=== PATIENT | male | born 1980 | race African-American/Black ===

== ENCOUNTER 2016-11-03 06:05 | Emergency (ER) | payer BC ==
[2016-11-03 07:00] LABS: ABSOLUTE EOSINOPHILS # (AUTO) 0.1 10^3/uL (0.0-0.6); ABSOLUTE LYMPHOCYTES (AUTO) 1.4 10^3/uL (0.5-4.7); ABSOLUTE MONOCYTES (AUTO) 0.4 10^3/uL (0.1-1.4); BASOPHILS % (AUTO) 0.9 % (0-2); EOSINOPHILS % (AUTO) 2.1 % (0-6); HEMATOCRIT 41.2 % (37.9-51.0); HEMOGLOBIN 14.4 g/dL (13.5-17.0); LYMPHOCYTES % (AUTO) 35.8 % (13-45); MEAN CORPUSCULAR HEMOGLOBIN 30.9 pg (27.0-33.4); MEAN CORPUSCULAR HGB CONC 34.9 g/dL (32.0-36.0); MEAN CORPUSCULAR VOLUME 88 fl (80-97); MONOCYTES % (AUTO) 10.5 % (3-13); RED BLOOD COUNT 4.66 10^6/uL (4.35-5.55); RED CELL DISTRIBUTION WIDTH 13.1 % (11.5-14.0); SEGMENTED NEUTROPHILS % (AUTO) 50.7 % (42-78); WHITE BLOOD COUNT 3.9 10^3/uL (4.0-10.5)
[2016-11-03 07:13] LABS: ALANINE AMINOTRANSFERASE 45 U/L (21-72); ALBUMIN 4.5 g/dL (3.5-5.0); ALKALINE PHOSPHATASE 69 U/L (38-126); ANION GAP 11 (5-19); ASPARTATE AMINO TRANSFERASE 70 U/L (17-59); BILIRUBIN,DIRECT 0.2 mg/dL (0.0-0.4); BILIRUBIN,TOTAL 1.7 mg/dL (0.2-1.3); BLOOD UREA NITROGEN 17 mg/dL (7-20); CALCIUM 9.5 mg/dL (8.4-10.2); CARBON DIOXIDE 29 mmol/L (22-30); CHLORIDE 98 mmol/L (98-107); CREATINE KINASE 975 U/L (55-170); CREATININE RESULT 1.05 mg/dL (0.52-1.25); GLUCOSE 99 mg/dL (75-110); POTASSIUM 3.8 mmol/L (3.6-5.0); SODIUM 138.4 mmol/L (137-145); TOTAL PROTEIN 7.6 g/dL (6.3-8.2)
[2016-11-03 07:26] LABS: CREATINE KINASE MB 1.55 ng/mL (<4.55); TROPONIN I < 0.012 ng/mL
[2016-11-03] MEDS ORDERED: LORAZEPAM INJ 2 MG/1 ML VIAL IV ONE (07:28)
[2016-11-03] MEDS ORDERED: NORMAL SALINE 1000 ML 1,000 ML IV ONE (07:28)
--- NOTE | 2016-11-03 07:32 | ER Document Report ---
ED General - General Chief Complaint: Chest Pain Stated Complaint: CHEST DISCOMFORT Mode of Arrival: Medic Information source: Patient, H Records Notes: 36-year-old male presents with complaints of chest pressure sensation. Patient notes that he has had these symptoms on and off for over a year, today it worsened associated with shortness of breath. Patient notes it feels like anxiety and panic attack. Denies any fevers or chills nausea vomiting or diarrhea TRAVEL OUTSIDE OF THE [place] IN LAST 30 DAYS: No - HPI Onset: Just prior to arrival Onset/Duration: Sudden Quality of pain: Pressure Severity: Mild Pain Level: 1 Associated symptoms: Chest pain, Shortness of breath Exacerbated by: Walking Relieved by: Denies Similar symptoms previously: Yes Recently seen / treated by doctor: Yes - Related Data Allergies/Adverse Reactions: No Known Allergies Allergy (Verified 04/30/13 09:59) Past Medical History - Social History Smoking Status: Never Smoker Cigarette use (# per day): No Chew tobacco use (# tins/day): No Smoking Education Provided: No Frequency of alcohol use: None Drug Abuse: None Family History: Reviewed & Not Pertinent - Past Medical History Cardiac Medical History: Reports: Hx Hypertension - untreated Renal/ Medical History: Denies: Hx Peritoneal Dialysis - Immunizations Hx Diphtheria, Pertussis, Tetanus Vaccination: Yes Review of Systems - Review of Systems Notes: REVIEW OF SYSTEMS: CONSTITUTIONAL : Denies fever, chills, or sweats. Denies recent illness. EENT: Denies eye, ear, throat, or mouth pain or symptoms. Denies nasal or sinus congestion or discharge. Denies throat, tongue, or mouth swelling or difficulty swallowing. CARDIOVASCULAR: Admits to chest pain RESPIRATORY: Admits shortness of breath GASTROINTESTINAL: Denies abdominal pain or distention. Denies nausea, vomiting , or diarrhea. Denies blood in vomitus, stools, or per rectum. Denies black, tarry stools. Denies constipation. GENITOURINARY: Denies difficulty urinating, painful urination, burning, frequency, blood in urine, or discharge. MUSCULOSKELETAL: Denies back or neck pain or stiffness. Denies joint pain or swelling. SKIN: Denies rash, lesions or sores. HEMATOLOGIC : Denies easy bruising or bleeding. LYMPHATIC: Denies swollen, enlarged glands. NEUROLOGICAL: Denies confusion or altered mental status. Denies passing out or loss of consciousness. Denies dizziness or lightheadedness. Denies headache. Denies weakness or paralysis or loss of use of either side. Denies problems with gait or speech. Denies sensory loss, numbness, or tingling. Denies seizures. PSYCHIATRIC: Admits to anxiety ALL OTHER SYSTEMS REVIEWED AND NEGATIVE. Dictation was performed using [employer] voice recognition software PHYSICAL EXAMINATION: GENERAL: Well-appearing, well-nourished and in no acute distress. HEAD: Atraumatic, normocephalic. EYES: Pupils equal round and reactive to light, extraocular movements intact, sclera anicteric, conjunctiva are normal. ENT: Nares patent, oropharynx clear without exudates. Moist mucous membranes. NECK: Normal range of motion, supple without lymphadenopathy LUNGS: Breath sounds clear to auscultation bilaterally and equal. No wheezes rales or rhonchi. HEART: Regular rate and rhythm without murmurs ABDOMEN: Soft, nontender, nondistended abdomen. No guarding, no rebound. No masses appreciated. Musculoskeletal: Normal range of motion, no pitting or edema. No cyanosis. NEUROLOGICAL: Cranial nerves grossly intact. Normal speech, normal gait. Normal sensory, motor exams PSYCH: Normal mood, normal affect. SKIN: Warm, Dry, normal turgor, no rashes or lesions noted. Physical Exam - Vital signs Vitals: Temp Pulse Resp BP Pulse Ox 98.4 F 59 L 18 132/89 H 95 11/03/16 06:13 11/03/16 06:13 11/03/16 06:13 11/03/16 06:13 11/03/16 06:13 Course - Re-evaluation Re-evalutation: 11/03/16 07:31 Patient has significant T-wave inversions, however this is exactly the same in appearance as his previous visit last year, when he had a normal ACS rule out. 11/03/16 08:33 Dr. perez has been consulted to evaluate patient 11/03/16 11:19 Echocardiagram noted mild dysfunction, otherwise no effusion. second set of enzymes negative given that there are no new ekg changes , pt noted releif with anoxety medication i will dc home with the understanding that he must follow up with Dr Perez for further care today and he will set patient up for a stress test for Sunday After performing a Medical Screening Examination, I estimate there is LOW risk for RUPTURED ESOPHAGUS, PNEUMOTHORAX, PULMONARY EMBOLISM, ACUTE CORONARY SYNDROME, OR THORACIC AORTIC DISSECTION, thus I consider the discharge disposition reasonable. I have reevaluated this patient multiple times and no significant life threatening changes are noted. The patient and I have discussed the diagnosis and risks, and we agree with discharging home with close follow-up. We also discussed returning to the Emergency Department immediately if new or worsening symptoms occur. We have discussed the symptoms which are most concerning (e.g., bloody sputum, worsening pain or shortness of breath) that necessitate immediate return. - Vital Signs Vital signs: Temp Pulse Resp BP Pulse Ox 98.4 F 59 L 18 126/87 H 99 11/03/16 06:13 11/03/16 06:13 11/03/16 07:01 11/03/16 09:14 11/03/16 09:14 - Laboratory Result Diagrams: 11/03/16 06:49 11/03/16 06:49 Laboratory results interpreted by me: 11/03/16 11/03/16 11/03/16 06:49 06:49 10:27 WBC 3.9 L Total Bilirubin 1.7 H AST 70 H Creatine Kinase 975 H 831 H - Diagnostic Test Radiology reviewed: Image reviewed, Reports reviewed - EKG Interpretation by Me EKG shows normal: Sinus rhythm, [place], Intervals, QRS Complexes, ST-T Waves When compared to previous EKG there are: No significant change - Significant ST inversion Discharge - Discharge Clinical Impression: Anxiety, Electrocardiogram showing no change from prior tracing Chest pain Qualifiers: Chest pain type: unspecified Qualified Code(s): R07.9 - Chest pain, unspecified Condition: Stable Disposition: HOME, SELF-CARE Instructions: Chest Pain of Unclear Cause ([facility]) Prescriptions: Lorazepam [Ativan 0.5 mg Tablet] 0.5 mg PO Q4 PRN #20 tab PRN Reason: Referrals: POLINA SAAVEDRA MD [Primary Care Provider] - Follow up as needed ELISA PEREZ MD [ACTIVE STAFF] - 11/03/16
--- NOTE | 2016-11-03 11:11 | XCELERA REPORT ---
[address] [address] Transthoracic Echocardiogram Report Name: GINGER ARRINGTON Age: 36 yrs Gender: Male : 1980 Patient Status: Emergency Patient Location: ER Study Date: 11/03/2016 09:34 AM Height: 66 in Weight: 175 lb BSA: 1.9 m2 Procedure: A complete two-dimensional transthoracic echocardiogram was performed (2D, M-mode, spectral and color flow Doppler). The study was technically adequate with some images being suboptimal in quality. Reason For Study: chest pain Ordering Physician: YAMILE OLSON Performed By: Mary Tejada Interpretation Summary The left ventricular ejection fraction is normal. Doppler measurements suggest impaired left ventricular relaxation, which is associated with grade I/IV or mild diastolic dysfunction There is mild concentric left ventricular hypertrophy. The left ventricle is grossly normal size. The left ventricular wall motion is normal. The right ventricular systolic function is normal. The right atrium is normal. The left atrial size is normal. There is a trace amount of mitral regurgitation There is no mitral valve stenosis. No aortic regurgitation is present. There is no aortic valve stenosis There is a trace or physiologic amount of tricuspid regurgitation Tricuspid regurgitation jet envelope not well defined to measure RV systolic pressure accurately. The aortic root is not well visualized. The inferior vena cava appeared normal There is no pericardial effusion. MMode/2D Measurements \T\ Calculations RVDd: 3.5 cm LVIDd: 4.6 cm FS: 40.2 % Ao root diam: 2.5 cm IVSd: 1.0 cm LVIDs: 2.7 cm EDV(Teich): 95.2 ml LVPWd: 1.0 cm ESV(Teich): 27.6 ml Ao root area: 4.8 cm2 EF(Teich): 71.0 % LA dimension: 2.9 cm Doppler Measurements \T\ Calculations MV E max srinivas: MV P1/2t max srinivas: Ao V2 max: LV V1 max P.9 cm/sec 83.4 cm/sec 158.2 cm/sec 7.9 mmHg MV A max srinivas: MV P1/2t: 87.7 msec Ao max PG: LV V1 max: 48.9 cm/sec 10.0 mmHg 140.7 cm/sec MV E/A: 1.7 MVA(P1/2t): 2.5 cm2 MV dec slope: 278.7 cm/sec2 PA V2 max: PI end-d srinivas: 96.3 cm/sec 123.5 cm/sec PA max P.7 mmHg Left Ventricle The left ventricle is grossly normal size. There is mild concentric left ventricular hypertrophy. The left ventricular ejection fraction is normal. Doppler measurements suggest impaired left ventricular relaxation, which is associated with grade I/IV or mild diastolic dysfunction. The left ventricular wall motion is normal. Right Ventricle The right ventricle is grossly normal size. There is normal right ventricular wall thickness. The right ventricular systolic function is normal. Atria The right atrium is normal. The left atrial size is normal. Interarterial septum not well visualized and not well dopplered. Cannot comment on ASD/PFO presence. Mitral Valve The mitral valve is grossly normal. There is no mitral valve stenosis. There is a trace amount of mitral regurgitation. Aortic Valve The aortic valve is grossly normal. There is no aortic valve stenosis. No aortic regurgitation is present. Tricuspid Valve The tricuspid valve is not well visualized, but is grossly normal. There is no tricuspid stenosis. There is a trace or physiologic amount of tricuspid regurgitation. Tricuspid regurgitation jet envelope not well defined to measure RV systolic pressure accurately. Pulmonic Valve The pulmonic valve is not well seen, but is grossly normal. Great Vessels The aortic root is not well visualized. The inferior vena cava appeared normal. Effusions There is no pericardial effusion. : YAMILE OLSON Shyamal
[2016-11-03 11:13] LABS: CREATINE KINASE MB 1.32 ng/mL (<4.55)
[2016-11-03 11:14] LABS: TROPONIN I < 0.012 ng/mL
[2016-11-03 11:52] VITALS: BP 126/83
--- NOTE | 2016-11-03 21:53 | EKG REPORT ---
SEVERITY:- ABNORMAL ECG - SINUS RHYTHM ATRIAL PREMATURE COMPLEX ABNORMAL T, PROBABLE ISCHEMIA, ANT-LAT LEADS : Confirmed by: Chari Tobias MD 03-Nov-2016 21:51:37
== END 2016-11-03 12:07 | disposition home or self-care (01) ==
LOC: ER 06:05
DX: F41.9 Anxiety disorder, unspecified (principal); R07.9 Chest pain, unspecified; R06.02 Shortness of breath; I10 Essential (primary) hypertension
CPT/HCPCS: 93005; 99285; 96361; 96374; 36415; 82553; 82550; 85025; 80053; 84484; 93306; 71020; 93010; J2060; J7030

== ENCOUNTER 2018-05-02 09:18 | Emergency (ER) | payer BC ==
[2018-05-02 09:28] VITALS: BP 113/64
[2018-05-02] MEDS ORDERED: BUSPIRONE HCL 10 MG TABLET PO ONE (09:41)
[2018-05-02] MEDS ORDERED: IPRATROPIUM/ALBUTEROL 0.5-2.5 MG/3 ML AMPUL NEB ONE (09:41)
--- NOTE | 2018-05-02 09:47 | ER Document Report ---
ED General - General Chief Complaint: Numbness Stated Complaint: DIZZINESS,SHORTNESS OF BREATH Time Seen by Provider: 05/02/18 09:40 Notes: Chief complaint: Difficulty breathing History of complain:( obtained from----patient) 37 years old male with a history of anxiety, hypertension, had a chemical stress test done last fall with normal finding, evaluated for sleep apnea last year, presents today with shortness of breath on and off for several months, feeling lightheaded and dizzy since yesterday as well as left arm numbness over the inner border of the forearm from the elbow to the fourth and fifth fingers. Denies any ringing sensation in the, denies any headache, denies any focal weakness numbness tingling sensation, denies any chest pain or palpitation. Denies any fever chills or other constitutional symptoms. He has nasal polyps, when he breathes through the mouth he was able to breathe better. No fever chills or other constitutional symptoms Onset: As above Duration: Gradual long-standing Severity: Mild Quality: As mentioned above Context: Possible anxiety Exacerbating factor and relieving factors: None REVIEW OF SYSTEMS: CONSTITUTIONAL : Denies fever, chills, or sweats. Denies recent illness. EENT: Denies eye, ear, throat, or mouth pain or symptoms. Denies nasal or sinus congestion or discharge. Denies throat, tongue, or mouth swelling or difficulty swallowing. CARDIOVASCULAR: Denies chest pain. Denies palpitations or racing or irregular heart beat. Denies ankle edema. RESPIRATORY: Denies cough, cold, or chest congestion. Denies shortness of breath, difficulty breathing, or wheezing. GASTROINTESTINAL: Denies distention. Denies nausea, vomiting, or diarrhea. Denies blood in vomitus, stools, or per rectum. Denies black, tarry stools. Denies constipation. GENITOURINARY: Denies difficulty urinating, painful urination, burning, frequency, blood in urine, or discharge. FEMALE GENITOURINARY: Denies vaginal bleeding, heavy or abnormal periods, irregular periods. Denies vaginal discharge or odor. MUSCULOSKELETAL: Denies back or neck pain or stiffness. Denies joint pain or swelling. SKIN: Denies rash, lesions or sores. HEMATOLOGIC : Denies easy bruising or bleeding. LYMPHATIC: Denies swollen, enlarged glands. NEUROLOGICAL: Denies confusion or altered mental status. Denies passing out or loss of consciousness. Denies dizziness or lightheadedness. Denies headache. Denies weakness or paralysis or loss of use of either side. Denies problems with gait or speech. Denies sensory loss, numbness, or tingling. Denies seizures. PSYCHIATRIC: Denies anxiety or stress. Denies depression, suicidal ideation, or homicidal ideation. ALL OTHER SYSTEMS REVIEWED AND NEGATIVE. PHYSICAL EXAMINATION: GENERAL: Well-appearing, well-nourished and in no acute distress. HEAD: Atraumatic, normocephalic. EYES: Pupils equal round and reactive to light, extraocular movements intact, conjunctiva are normal. ENT: Nares patent, oropharynx clear without exudates. Moist mucous membranes. NECK: Normal range of motion, supple without lymphadenopathy LUNGS: Breath sounds clear to auscultation bilaterally and equal. No wheezes rales or rhonchi. HEART: Regular rate and rhythm without murmurs ABDOMEN: Soft, nontender, nondistended abdomen. No guarding, no rebound. No masses appreciated. Examination of genitals-deferred Musculoskeletal: Normal range of motion, no pitting or edema. No cyanosis. NEUROLOGICAL: Cranial nerves grossly intact. Normal speech, normal gait. Normal sensory, motor exams PSYCH: Normal mood, normal affect. SKIN: Warm, Dry, normal turgor, no rashes or lesions noted. Dictation was performed using [employer] voice recognition software TRAVEL OUTSIDE OF THE [place] IN LAST 30 DAYS: No - HPI Notes: Dictated - Related Data Allergies/Adverse Reactions: No Known Allergies Allergy (Verified 05/02/18 09:20) Past Medical History - Social History Smoking Status: Former Smoker Chew tobacco use (# tins/day): No Frequency of alcohol use: Occasional Drug Abuse: None Lives with: Family Family History: Reviewed & Not Pertinent Patient has suicidal ideation: No Patient has homicidal ideation: No - Past Medical History Cardiac Medical History: Reports: Hx Hypertension - untreated Renal/ Medical History: Denies: Hx Peritoneal Dialysis - Immunizations Hx Diphtheria, Pertussis, Tetanus Vaccination: Yes Review of Systems - Review of Systems Notes: Dictated Physical Exam - Vital signs Vitals: Temp Pulse Resp BP Pulse Ox 98.4 F 60 15 113/64 99 05/02/18 09:26 05/02/18 09:26 05/02/18 09:26 05/02/18 09:26 05/02/18 09:26 - Notes Notes: Dictated Course - Vital Signs Vital signs: Temp Pulse Resp BP Pulse Ox 98.4 F 60 15 113/64 99 05/02/18 09:26 05/02/18 09:26 05/02/18 09:26 05/02/18 09:26 05/02/18 09:26 - EKG Interpretation by Mi EKG shows normal: Sinus rhythm - Electrocardiogram shows sinus rhythm at the rate of 56 bpm T wave inversions in V3 V4 V5 V6 conduction delay in inferior leads. This electrocardiogram was compared with the electrocardiogram that was done in November 03, 2016. The current EKG is much improvement. He had subsequent to the previous electrocardiogram had a chemical stress test which was reported by the bundle shaker as normal. Discharge - Discharge Clinical Impression: Anxiety, Abnormal EKG Hyperactive airway disease Qualifiers: Asthma severity: mild Asthma persistence: intermittent Asthma complication type : with acute exacerbation Qualified Code(s): J45.21 - Mild intermittent asthma with (acute) exacerbation Condition: Fair Disposition: HOME, SELF-CARE Instructions: Reactive Airway Disease ([facility]), Anxiety ([facility]), Electrogram Abnormality ([facility]) Prescriptions: Albuterol Sulfate [Proair HFA] 1 - 2 puff IH Q4 PRN #1 inhaler PRN Reason: Buspirone HCl [Buspar 5 mg Tablet] 1 tab PO BID #60 tab Referrals: POLINA SAAVEDRA MD [Primary Care Provider] - Follow up as needed
--- NOTE | 2018-05-02 12:51 | EKG REPORT ---
SEVERITY:- ABNORMAL ECG - SINUS RHYTHM ABNORMAL T, CONSIDER ISCHEMIA, DIFFUSE LEADS ESSENTAILLY UNCHANGED FROM 11/03/16 : Confirmed by: Kieran Simon MD 02-May-2018 12:50:11
== END 2018-05-02 10:40 | disposition home or self-care (01) ==
LOC: ER 09:18
DX: J45.21 Mild intermittent asthma with (acute) exacerbation (principal); R20.0 Anesthesia of skin; F41.9 Anxiety disorder, unspecified; R94.31 Abnormal electrocardiogram [ECG] [EKG]; R42 Dizziness and giddiness; R06.02 Shortness of breath
CPT/HCPCS: 93005; 94640; 99284; 93010; J7620